=== PATIENT | female | born 1995 | race Caucasian/White ===

== ENCOUNTER 2022-06-03 22:56 | Emergency (ER) | payer MEDICAID ==
[2022-06-03 23:16] VITALS: BP 161/100; PULSE 89; O2SAT 95
--- NOTE | 2022-06-03 23:28 | ERPHSYRPT ---
- History of Present Illness Time Seen by Provider: 06/03/22 23:25 Source: patient Exam Limitations: no limitations Patient Subjective Stated Complaint: sorethroat, unable to swallow food, hearing loss Triage Nursing Assessment: Pt ambulated to room without difficulty. No respiratory distress noted. Lung sounds clear. Physician History: Patient here with influenza A. Diagnosed approximately 1 week ago. Patient did not take Tamiflu or other medication. She did not receive a flu vaccine. Patient denies smoking although close and room smell of cigarettes. Unclear where this smoke exposure is coming from. She has no other falls or trauma. States that she initially had a bad sore throat. However it is improving. Took a short course of prednisone going home. She has not taken any dose of her home albuterol. Timing/Duration: week(s) Severity: mild Modifying Factors: Improves With: medication, other Associated Symptoms: denies symptoms Allergies/Adverse Reactions: No Known Drug Allergies Allergy (Verified 06/03/22 23:03) Home Medications: Albuterol 8 gm Mdi Hfa [Ventolin Hfa MDI] 2 puffs IH Q4H PRN PRN 03/22/14 [History] Loratadine 10 mg [Claritin 10 mg] 10 mg PO DAILY 03/22/14 [History] Hx Tetanus, Diphtheria Vaccination/Date Given: Yes Hx Influenza Vaccination/Date Given: No Hx Pneumococcal Vaccination/Date Given: No Travel Risk - International Travel Have you traveled outside of the country in past 3 weeks: No - Coronavirus Screening Are you exhibiting any of the following symptoms?: Yes Symptoms: Cough: New Onset, Headaches/Body Aches/Fatigue - Vaccine Status Have you recieved a Covid-19 vaccination: Yes 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 - Vaccination Dates Dates if Unknown: unknown - Review of Systems Constitutional: No Fever, No Chills Eyes: No Symptoms Ears, Nose, & Throat: No Symptoms, Other (Sore throat) Respiratory: No Cough, No Dyspnea Cardiac: No Chest Pain, No Edema, No Syncope Abdominal/Gastrointestinal: No Abdominal Pain, No Nausea, No Vomiting, No Diarrhea Genitourinary Symptoms: No Dysuria Musculoskeletal: No Back Pain, No Neck Pain Skin: No Rash Neurological: No Dizziness, No Focal Weakness, No Sensory Changes Psychological: No Symptoms Endocrine: No Symptoms All Other Systems: Reviewed and Negative - Past Medical History Pertinent Past Medical History: Yes Neurological History: No Pertinent History ENT History: Other Cardiac History: No Pertinent History Respiratory History: Asthma Endocrine Medical History: Diabetes Type II Musculoskeletal History: No Pertinent History GI Medical History: No Pertinent History History: No Pertinent History Psycho-Social History: No Pertinent History Female Reproductive Disorders: No Pertinent History Other Medical History: SEASONAL ALLERGIES, lupus - Past Surgical History Past Surgical History: Yes Neuro Surgical History: No Pertinent History Cardiac: No Pertinent History Respiratory: No Pertinent History Gastrointestinal: No Pertinent History Genitourinary: No Pertinent History Musculoskeletal: No Pertinent History Female Surgical History: No Pertinent History Other Surgical History: murana control, wisdom teeth removed - Social History Smoking Status: Never smoker Exposure to second hand smoke: No Drug Use: none Patient Lives Alone: No - Female History Hx Last Menstrual Period: unknown Hx Now: (unknown) - Nursing Vital Signs Nursing Vital Signs: Initial Vital Signs Temperature 98.9 F 06/03/22 23:05 Pulse Rate 89 06/03/22 23:05 Respiratory Rate 16 06/03/22 23:05 Blood Pressure 161/100 06/03/22 23:05 O2 Sat by Pulse Oximetry 95 06/03/22 23:05 Pain Scale Pain Intensity 0 - Physical Exam General Appearance: no apparent distress, alert Eye Exam: PERRL/EOMI, eyes nml inspection Ears, Nose, Throat Exam: normal ENT inspection, TMs normal, pharynx normal, moist mucous membranes Neck Exam: normal inspection, non-tender, supple, full range of motion Respiratory Exam: normal breath sounds, lungs clear, No respiratory distress Cardiovascular Exam: regular rate/rhythm, normal heart sounds, normal peripheral pulses Gastrointestinal/Abdomen Exam: soft, normal bowel sounds, No tenderness, No mass Back Exam: normal inspection, normal range of motion, No CVA tenderness, No vertebral tenderness Extremity Exam: normal inspection, normal range of motion, pelvis stable Neurologic Exam: alert, oriented x 3, cooperative, normal mood/affect, nml cerebellar function, nml station & gait, sensation nml, No motor deficits Skin Exam: normal color, warm, dry, No rash Lymphatic Exam: No adenopathy SpO2: 95 Comments: 06/03/22 23:41 Patient appears well. She is not in any distress. No signs of peritonsillar abscess on exam No trismus, able to fully extend neck, normal range of motion of neck without pain. Uvula is midline, no swelling of the mouth, noraml oropharynx. No exudate, no signs of meningitis, no floor of mouth swelling, no hot potato voice on exam. No buccal swelling, no gum bleeding, no signs of tooth abscess/infection.. - Course Nursing assessment & vital signs reviewed: Yes - Progress Progress: improved Progress Note: 06/03/22 23:42 We have a long discussion about normal course of fluid illness with the patient. We will give her coughing medication to go home with. We will also give her a refill on her albuterol inhaler. Plan for close follow-up with PCP. She may return here sooner for any new or changing symptoms. - Departure Departure Disposition: Home Clinical Impression: Influenza A Condition: Stable Critical Care Time: No Referrals: OSMEL RIVAS PANEL SEWER [Primary Care Provider] - Follow up/PCP as directed Instructions: Sore Throat, Adult (DC) Prescriptions: Benzonatate 200 mg PO TID 10 Days #30 cap Benzonatate 200 mg PO TID 10 Days #30 cap Albuterol 8 gm Mdi Hfa [Ventolin Hfa MDI] 8 gm IH Q4H #1
== END 2022-06-03 23:46 | disposition home or self-care (01) ==
LOC: ED 22:56
DX: J10.1 Influenza due to other identified influenza virus with other respiratory manifestations (principal); Z79.899 Other long term (current) drug therapy; E11.9 Type 2 diabetes mellitus without complications
CPT/HCPCS: 99281